=== PATIENT | female | born 1985 | race Caucasian/White ===

== ENCOUNTER 2017-01-25 17:38 | Emergency (ER) | payer BC ==
[~2017-01-25] VITALS: Ht 162.6 cm; Wt 54.4 kg
[2017-01-25 18:07] VITALS: BP 144/101; PULSE 112; RESP 20; TEMP 98.2; O2SAT 98
--- NOTE | 2017-01-25 18:12 | NUR ---
Pt placed to ER waiting room in stable condition.
--- NOTE | 2017-01-25 18:30 | NUR ---
Mich martinez in [facility] - 01/26/17 at 0516 by SDNURSDM SURYA Quick at bedside examining patient.
--- NOTE | 2017-01-25 18:53 | NUR ---
Pt placed to ER bed 2, report given to JASMIN Gutierrez.
--- NOTE | 2017-01-25 18:54 | NUR ---
PATIENT TO ER BED 2.PER PATIENT SHE TRIPPED WHILE WALKING ON A SIDEWALK WITH FAMILY AND TRIPPED OVER.COMPLAINING OF PRESSURE TO HEAD,WITH ABRASION AND BUMP TO FOREHEAD;DRY BLOOD NOTED.ABRASIONS AND REDNESS TO BILATERAL HANDS.NO ALTERED LEVEL OF CONSCIOUSNESS.NO DIZZINESS.NO NAUSEA/VOMITING.NO OTHER COMPLAIN/INJURIES PER PATIENT OR NOTED
--- NOTE | 2017-01-25 18:55 | NUR ---
ER Dr. Quick at bedside examining patient.
--- NOTE | 2017-01-25 19:03 | NUR ---
PATIENT TO RADIOLOGY FOR XRAY
--- NOTE | 2017-01-25 19:23 | NUR ---
PATIENT ON BED AWAKE.NO ACUTE DISTRESS.ENDORSED CARE TO CHAR [employer]VEYOR TENDER CELLAR RN
[2017-01-25 20:14] VITALS: BP 138/96; PULSE 105; RESP 20; TEMP 98.2; O2SAT 98
--- NOTE | 2017-01-25 20:14 | NUR ---
Patient given written and verbal discharge instructions and verbalizes understanding. ER MD discussed with patient the results and treatment provided. Patient in stable condition. ID arm band Rx of mupirocin given. Patient educated on pain management and to follow up with PMD. Pain Scale 0/10. Opportunity for questions provided and answered.
== END 2017-01-25 20:14 | disposition home or self-care (01) ==
LOC: SED 17:38
DX: S02.2XXA Fracture of nasal bones, initial encounter for closed fracture (principal); S00.81XA Abrasion of other part of head, initial encounter; R03.0 Elevated blood-pressure reading, without diagnosis of hypertension; W01.10XA Fall on same level from slipping, tripping and stumbling with subsequent striking against unspecified object, initial encounter; Y93.89 Activity, other specified; Y92.89 Other specified places as the place of occurrence of the external cause; Y99.8 Other external cause status
CPT/HCPCS: 70160-TC; 99284

== ENCOUNTER 2017-08-26 07:53 | Day surgery (SDC) | payer BC ==
[2017-08-25 12:57] LABS: BILIRUBIN,URINE NEGATIVE (NEGATIVE); BLOOD, URINE 1+ (NEGATIVE); CLARITY/URINE CLEAR (CLEAR); COLOR,URINE YELLOW (YELLOW); GLUCOSE,URINE NEGATIVE (NEGATIVE); KETONES,URINE NEGATIVE (NEGATIVE); LEUKOCYTE ESTERASE ,URINE NEGATIVE (NEGATIVE); NITRITE, URINE NEGATIVE (NEGATIVE); PH,URINE 5.5 (5.0-8.0); PROTEIN URINE NEGATIVE (NEGATIVE); UROBILINOGEN,URINE 0.2 (0.2-1.0)
[2017-08-25 12:59] LABS: CREATININE 0.65 mg/dL (0.55-1.30)
[2017-08-25 13:03] LABS: BASOPHILS % (AUTO) 0.5 % (0.0-2.0); EOSINOPHILS # (AUTO) 0.1 K/uL (0.0-0.4); EOSINOPHILS % (AUTO) 0.9 % (0.0-4.0); HEMATOCRIT 40.1 % (36-48); HEMOGLOBIN 13.2 g/dL (12.0-16.0); LYMPHOCYTES # (AUTO) 2.2 K/uL (1.0-5.5); LYMPHOCYTES % (AUTO) 24.1 % (20.5-51.5); MEAN CORPUSCULAR HEMOGLOBIN 30 pg (27-31); MEAN CORPUSCULAR HGB CONC 33 % (32-36); MEAN CORPUSCULAR VOLUME 90 fL (79.0-98.0); MONOCYTES # (AUTO) 0.4 K/uL (0.0-1.0); MONOCYTES % (AUTO) 4.8 % (1.7-9.3); NEUTROPHILS # (AUTO) 6.3 K/uL (1.8-7.7); NEUTROPHILS % (AUTO) 69.7 % (40.0-70.0); PLATELET COUNT (AUTO) 283 K/uL (130-430); RED BLOOD CELL COUNT(AUTO) 4.47 MIL/uL (4.2-6.2)
[2017-08-25 13:07] LABS: HCG,QUAL RESULT NEGATIVE (NEGATIVE)
[2017-08-25 13:34] LABS: BACTERIA,URINE FEW /HPF (None Seen); WBC,URINE 0-3 /HPF (0-3)
[~2017-08-26] VITALS: Ht 162.6 cm; Wt 53.1 kg
[2017-08-26] MEDS ORDERED: LR 1,000 ML IV SCH (10:54)
[2017-08-26] MEDS ORDERED: MEPERIDINE HCL/PF 25 MG/ML DISP.SYRIN IVP PRN ×2 (11:00)
[2017-08-26] MEDS ORDERED: HYDROmorphone 2 MG/ML VIAL IVP PRN ×2 (11:00)
[2017-08-26] MEDS ORDERED: HYDROmorphone 1 MG INJ. 1 MG/ML AMPUL IVP PRN (11:00)
[2017-08-26] MEDS ORDERED: ONDANSETRON HCL 4 MG/2 ML VIAL IVP PRN ×2 (11:00→12:00)
[2017-08-26] MEDS ORDERED: KETOROLAC TROMETHAMINE 30 MG VIAL IVP PRN (11:00)
[2017-08-26] MEDS ORDERED: OXYCODONE/ACETAMINOPHEN 5-325 TABLET PO PRN ×2 (12:00→13:00)
[2017-08-26] MEDS ORDERED: PROMETHAZINE HCL 25 MG/ML AMP IM PRN ×2 (12:00)
[2017-08-26 13:11] VITALS: BP_SYST 130
[2017-08-26] MEDS ORDERED: GLYCOPYRROLATE 0.2 MG/ML VIAL IJ ONE (13:15)
[2017-08-26] MEDS ORDERED: MIDAZOLAM HCL 5 MG/ML VIAL (VERSED) IV ONE (13:15)
[2017-08-26] MEDS ORDERED: LR 1,000 ML IV.SOLN IV ONE (13:15)
[2017-08-26] MEDS ORDERED: fentaNYL CITRATE/PF 100 MCG/2 ML AMP IVP ONE (13:15)
[2017-08-26] MEDS ORDERED: ROCURONIUM BROMIDE 10 MG/ML (ZEMURON) IV ONE (13:15)
[2017-08-26] MEDS ORDERED: KETOROLAC TROMETHAMINE 30 MG VIAL IVP ONE (13:15)
[2017-08-26] MEDS ORDERED: NEOSTIGMINE METHYLSULFATE 1 MG/ML, 10 ML VIAL IVP ONE (13:15)
[2017-08-26] MEDS ORDERED: ONDANSETRON HCL 4 MG/2 ML VIAL IVP ONE (13:15)
[2017-08-26] MEDS ORDERED: SEVOFLURANE 15 MIN GAS INH ONE (13:15)
[2017-08-26] MEDS ORDERED: PROPOFOL 200MG/ 20ML VIAL (DIPRIVAN) IV ONE (13:15)
== END 2017-08-26 14:00 | disposition home or self-care (01) ==
LOC: SMU 07:53 → SDS 07:53
PROVIDERS: ATTEND Obstetrics & Gynecology
DX: N72 Inflammatory disease of cervix uteri (principal); N73.6 Female pelvic peritoneal adhesions (postinfective); G43.909 Migraine, unspecified, not intractable, without status migrainosus; Z79.899 Other long term (current) drug therapy
CPT/HCPCS: 36415; 49320; 58558; 80048; 81000; 84703; 85025; 86886; 86900; 86901; 88305; C1727; J1885; J2250; J2405; J2704; J2710; J3010; J3490; J7120

== ENCOUNTER 2018-04-29 05:35 | Day surgery (SDC) | payer BC ==
[2018-04-27 12:29] LABS: BASOPHILS # (AUTO) 0.1 K/uL (0.0-0.2); BASOPHILS % (AUTO) 0.8 % (0.0-2.0); BILIRUBIN,URINE NEGATIVE (NEGATIVE); BLOOD, URINE 2+ (NEGATIVE); CLARITY/URINE CLEAR (CLEAR); COLOR,URINE YELLOW (YELLOW); EOSINOPHILS # (AUTO) 0.2 K/uL (0.0-0.4); EOSINOPHILS % (AUTO) 1.6 % (0.0-4.0); GLUCOSE,URINE NEGATIVE (NEGATIVE); HEMATOCRIT 40.4 % (36-48); HEMOGLOBIN 13.9 g/dL (12.0-16.0); KETONES,URINE TRACE (NEGATIVE); LEUKOCYTE ESTERASE ,URINE NEGATIVE (NEGATIVE); LYMPHOCYTES # (AUTO) 2.1 K/uL (1.0-5.5); LYMPHOCYTES % (AUTO) 18.4 % (20.5-51.5); MEAN CORPUSCULAR HEMOGLOBIN 30 pg (27-31); MEAN CORPUSCULAR HGB CONC 34 % (32-36); MEAN CORPUSCULAR VOLUME 89 fL (79.0-98.0); MONOCYTES # (AUTO) 0.6 K/uL (0.0-1.0); MONOCYTES % (AUTO) 5.2 % (1.7-9.3); NEUTROPHILS # (AUTO) 8.4 K/uL (1.8-7.7); NITRITE, URINE NEGATIVE (NEGATIVE); PLATELET COUNT (AUTO) 288 K/uL (130-430); PROTEIN URINE TRACE (NEGATIVE); RED BLOOD CELL COUNT(AUTO) 4.57 MIL/uL (4.2-6.2); UROBILINOGEN,URINE 0.2 (0.2-1.0); WHITE BLOOD COUNT (AUTO) 11.4 K/uL (4.8-10.8)
[2018-04-27 12:40] LABS: ALBUMIN 4.1 g/dL (3.4-4.8); CALCIUM 9.2 mg/dL (8.4-11.0); CREATININE 0.74 mg/dL (0.55-1.30); TOTAL BILIRUBIN 0.4 mg/dL (0.0-1.0)
[2018-04-27 12:58] LABS: BACTERIA,URINE FEW /HPF (None Seen); MUCUS,URINE 1+ /LPF (None Seen); WBC,URINE 0-3 /HPF (0-3); YEAST,URINE None Seen /HPF (None Seen)
[~2018-04-29] VITALS: Ht 162.6 cm; Wt 67.1 kg
[2018-04-29] MEDS ORDERED: fentaNYL CITRATE/PF 100 MCG/2 ML AMP IVP PRN ×2 (09:15)
[2018-04-29] MEDS ORDERED: ONDANSETRON HCL 4 MG/2 ML VIAL IVP PRN ×2 (09:15→12:45)
[2018-04-29] MEDS ORDERED: KETOROLAC TROMETHAMINE 30 MG VIAL IVP PRN (09:15)
[2018-04-29] MEDS ORDERED: OXYCODONE/ACETAMINOPHEN 5-325 TABLET PO PRN ×3 (12:45)
[2018-04-29] MEDS ORDERED: HYDROmorphone 2 MG TAB PO PRN (12:45)
[2018-04-29] MEDS ORDERED: PROMETHAZINE HCL 25 MG/ML AMP IM PRN ×2 (12:45)
[2018-04-29] MEDS ORDERED: ROCURONIUM BROMIDE 10 MG/ML (ZEMURON) ONE (12:50)
[2018-04-29] MEDS ORDERED: NEOSTIGMINE METHYLSULFATE 1 MG/ML, 10 ML VIAL ONE (12:50)
[2018-04-29] MEDS ORDERED: NS IRRIG SOLN 1000 ML IR ONE (12:50)
[2018-04-29] MEDS ORDERED: NS 1000 ML IV.SOLN IV ONE (12:50)
[2018-04-29] MEDS ORDERED: ROPIVACAINE 0.2% (NAROPIN) PF SOLUTION 100 ML BOTTLE ONE (12:50)
[2018-04-29] MEDS ORDERED: PHENYLEPHRINE HCL 10 MG/ML VIAL (NEOSYNEPHRINE) ONE (12:50)
[2018-04-29] MEDS ORDERED: LIDOCAINE 2%, 20 ML MDV ONE (12:50)
[2018-04-29] MEDS ORDERED: LR 1,000 ML IV.SOLN IV ONE (12:50)
[2018-04-29] MEDS ORDERED: GLYCOPYRROLATE 0.2 MG/ML VIAL ONE (12:50)
[2018-04-29] MEDS ORDERED: SEVOFLURANE 15 MIN GAS INH ONE (12:50)
[2018-04-29] MEDS ORDERED: BUPIVACAINE /PF 0.5% 30 ML VIAL ONE (12:50)
[2018-04-29] MEDS ORDERED: MEPERIDINE HCL/PF 50 MG/ML AMP ONE (12:50)
[2018-04-29] MEDS ORDERED: ONDANSETRON HCL 4 MG/2 ML VIAL ONE ×2 (12:50→12:57)
[2018-04-29] MEDS ORDERED: CEFAZOLIN 2 GM IVPB PREMIX 50 ML IV ONE (12:50)
[2018-04-29] MEDS ORDERED: MIDAZOLAM HCL 5 MG/ML VIAL (VERSED) IV ONE (12:50)
[2018-04-29] MEDS ORDERED: PROPOFOL 200MG/ 20ML VIAL (DIPRIVAN) IV ONE (12:50)
[2018-04-29] MEDS ORDERED: fentaNYL CITRATE/PF 100 MCG/2 ML AMP ONE (13:00)
[2018-04-29 17:58] VITALS: BP_SYST 140
[2018-04-29] MEDS ORDERED: KETOROLAC TROMETHAMINE 30 MG VIAL IVP SCH (18:00)
== END 2018-04-29 16:00 | disposition home or self-care (01) ==
LOC: SMU 05:35 → SDS 05:35
PROVIDERS: ATTEND Obstetrics & Gynecology
DX: N80.0 Endometriosis of uterus (principal); Z79.899 Other long term (current) drug therapy; Q60.0 Renal agenesis, unilateral; I10 Essential (primary) hypertension; F41.9 Anxiety disorder, unspecified; Z81.8 Family history of other mental and behavioral disorders; Z82.49 Family history of ischemic heart disease and other diseases of the circulatory system; Z80.1 Family history of malignant neoplasm of trachea, bronchus and lung
CPT/HCPCS: 36415; 58571; 80053; 81000; 84703; 85025; 86886; 86900; 86901; 88307; C1727; J0690; J2001; J2175; J2250; J2370; J2405; J2704; J2710; J2795; J3010; J3490 ×2; J7030; J7120; E0190